=== PATIENT | male | born 1940 | race Caucasian/White ===

== ENCOUNTER → 2019-05-08 14:24 | Outpatient (POV) | payer MEDICARE, MEDICAID, SELFPAY | DX: Z00.00 Encounter for general adult medical examination without abnormal findings (principal) ==

== ENCOUNTER → 2019-08-28 14:47 | Outpatient (POV) | payer MEDICARE, MEDICAID, SELFPAY | DX: Z00.00 Encounter for general adult medical examination without abnormal findings (principal) ==

== ENCOUNTER → 2019-10-16 13:23 | Outpatient (POV) | payer MEDICARE, MEDICAID, SELFPAY | DX: Z00.00 Encounter for general adult medical examination without abnormal findings (principal) ==

== ENCOUNTER → 2020-04-22 12:52 | Outpatient (POV) | payer MEDICARE, MEDICAID, SELFPAY | PROVIDERS: PCP Internal Medicine | DX: Z00.00 Encounter for general adult medical examination without abnormal findings (principal) ==

== ENCOUNTER 2020-09-07 15:04 | Inpatient (IN) | payer MEDICARE, MEDICAID, SELFPAY ==
[2020-09-07 15:05] VITALS: BP 152/69; PULSE 106; RESP 18; TEMP 36.7; O2SAT 96; BMI 26.6
--- NOTE | 2020-09-07 15:14 | XR_ITS ---
PROCEDURE: XR CHEST PORTABLE CLINICAL HISTORY: near syncope, weakness, GI bleed, shortness of breath COMPARISON: CT CT ABDOMEN PELVIS W CON from 09/07/2020 FINDINGS: The cardiomediastinal silhouette and pulmonary vascularity are within normal limits. Hiatal hernia noted. Lungs are clear bilaterally. No acute bony finding. No acute bony abnormalities. IMPRESSION: Hiatal hernia otherwise negative Dictated by: Karsten Alegria MD 09/07/2020 18:04 Karsten Alegria MD in [place] 09/07/2020 18:04
--- NOTE | 2020-09-07 15:16 | HMH.EDGENADL ---
ED Disposition Clinical Impression: Upper GI bleed, Renal insufficiency Leukocytosis Qualifiers: Leukocytosis type: unspecified Qualified Code(s): D72.829 - Elevated white blood cell count, unspecified Disposition: Admitted As Inpatient Condition on Discharge: Fair Referrals: Provider,Referral, [Referring] - - Critical Care Critical Care Time: No Attestation: On , the high probability of a clinically significant, sudden or life threatening deterioration of the following system(s) required my full and direct attention, intervention and personal management. The time I documented below is in addition to time spent performing reported procedures but includes the following listed in this critical care notation. Medical Decision Making - Medical Records Medical records reviewed: Yes: I reviewed the patient's medical records. - [place] Inquiry Pt receiving controlled substance: No Vital Signs: 09/07/20 15:05 09/07/20 16:29 09/07/20 16:55 Temperature 98.1 F Temperature Source Oral Pulse Rate [Left Radial] 106 H 81 110 H Respiratory Rate 18 18 Blood Pressure [Right Arm] 152/69 H 119/73 119/73 Blood Pressure Mean [Right Arm] 96 88 88 Blood Pressure Source [Right Arm] Automatic Cuff Automatic Cuff Automatic Cuff Blood Pressure Position [Right Arm] Sitting Sitting Sitting 02 Sat by Pulse Oximetry 96 99 80 L Oxygen Delivery Method Room Air Nasal Cannula Room Air Oxygen Flow Rate (LPM) 2 09/07/20 18:03 Temperature Temperature Source Pulse Rate [Left Radial] 102 H Respiratory Rate Blood Pressure [Right Arm] 125/82 Blood Pressure Mean [Right Arm] 96 Blood Pressure Source [Right Arm] Automatic Cuff Blood Pressure Position [Right Arm] Sitting 02 Sat by Pulse Oximetry 95 Oxygen Delivery Method Nasal Cannula Oxygen Flow Rate (LPM) 2 - Lab Data Lab Results 09/07/20 15:19: WBC 26.0 H*, RBC 2.54 L, Hgb 8.0 L, Hct 23.7 L*, MCV 93.4, MCH 31.4 H, MCHC 33.6, RDW 14.1, Plt Count 343, MPV 13.4 H, Neut % (Auto) 77.6, Lymph % (Auto) 15.6, Potter % (Auto) 6.4, Eos % (Auto) 0.1, Baso % (Auto) 0.3, Neut # (Auto) 20.2 H, Lymph # (Auto) 4.1, Potter # (Auto) 1.7 H, Eos # (Auto) 0.0, Baso # (Auto) 0.1, Total Counted 100, Neutrophils % (Manual) 81 H, Lymphocytes % (Manual) 13, Monocytes % (Manual) 6, Platelet Estimate Normal, RBC Morphology Normal 09/07/20 15:19: Sodium 132 L, Potassium 4.3, Chloride 103, Carbon Dioxide 17 L, Anion Gap 16.3 H, BUN 77 H, Creatinine 1.70 H, Estimated GFR 39 L, Est GFR ( Amer) 47 L, Glucose 196 H, Calcium 9.1, Total Bilirubin 0.4, AST 32, ALT 29, Alkaline Phosphatase 43, Troponin I < 0.01, Total Protein 5.9 L, Albumin 3.6, Globulin 2.3, Albumin/Globulin Ratio 1.6 09/07/20 15:19: Hemoglobin A1c 5.5 09/07/20 15:19: SARS-CoV-2 IgG Ab (Rapid) Negative, SARS-CoV-2 IgM Ab (Rapid) Negative 09/07/20 15:37: Stool Occult Blood Positive A Result diagrams: 09/07/20 15:19 09/07/20 15:19 Orders (Tests/Meds): ED MEDICATIONS Generic Name Dose Route Start Last Admin Trade Name Freq PRN Reason Stop Dose Admin Pantoprazole Sodium 80 mg/ 100 mls @ 10 mls/hr 09/07/20 15:45 09/07/20 16:25 Sodium Chloride IV 09/10/20 15:44 10 mls/hr .Q10H CHE Administration Discontinued Medications Generic Name Dose Route Start Last Admin Trade Name Freq PRN Reason Stop Dose Admin Lactated Ringer's 500 mls @ 999 mls/hr 09/07/20 15:15 09/07/20 15:53 Lactated Ringer's 1000 Ml Bag IV 09/07/20 15:45 999 mls/hr .Q31M CHE Administration Iopamidol 75 ml 09/07/20 17:31 09/07/20 17:32 Iopamidol-370 (76%);100ml Bottle IV 09/07/20 17:32 75 ml ONCE ONE Administration Sodium Chloride 10 ml 09/07/20 17:31 09/07/20 17:32 Sodium Chloride 0.9% 10ml Syr (Rad Only) IV 09/07/20 17:32 10 ml ONCE ONE Administration ORDERS Category Date Time Status CT abdomen pelvis w con Stat Cat Scan 09/07/20 16:17 Taken CBC [Complete Blood Count Auto Diff] Timed Lab 09/07/20 23:00 Ordered
--- NOTE | 2020-09-07 15:23 | ECG_ITS ---
APPROVED REPORT Exam: Resting ECG HR:98 bpm ECG Measurements Heart Rate 98 AXES LA 174 P 59 QRSd 90 QRS 46 QT 340 T 19 QTc 434 Conclusion Normal sinus rhythm Possible Inferior infarct, age undetermined Abnormal ECG Electronically signed by : Kodak Prado, 09/08/2020 07:31:13
[2020-09-07 15:31] LABS: Basophils # 0.1 K/mm3 (0-0.2); Basophils % 0.3 % (0.1-2.0); Eosinophils % 0.1 % (0.1-12.0); Lymphocytes # 4.1 K/mm3 (0.7-4.5); Lymphocytes % 15.6 % (10-50); Mean Corpuscular HGB Conc 33.6 g/dL (31.8-35.4); Mean Corpuscular Hemoglobin 31.4 pg (27.0-31.2); Mean Corpuscular Volume 93.4 fl (80-94); Mean Platelet Volume 13.4 fl (7.4-10.4); Monocytes # 1.7 K/mm3 (0.1-1.0); Monocytes % 6.4 % (1.7-9.3); Neutrophils # 20.2 K/mm3 (1.8-7.8); Neutrophils % 77.6 % (37.0-80.0); Platelet Count 343 K/mm3 (142-424); Red Blood Count 2.54 M/mm3 (4.60-6.20); Red Cell Distribution Width 14.1 % (11.5-17.5)
[2020-09-07 15:34] LABS: Hematocrit 23.7 % (42.0-52.0); MANUAL DIFFERENTIAL MANUAL DIFFERENTIAL (MANUAL DIFF)
[2020-09-07 15:42] LABS: Chloride 103 mmol/L (98-107); Potassium 4.3 mmoL/L (3.5-5.1); Sodium 132 mmol/L (136-145)
[2020-09-07 15:45] LABS: Alanine Aminotransferase 29 U/L (12-78); Albumin Level 3.6 g/dl (3.5-5.0); Albumin/Globulin Ratio 1.6 (1.1-1.8); Alkaline Phosphatase 43 U/L (38-126); Aspartate Amino Transferase 32 U/L (17-59); Bilirubin,Total 0.4 mg/dl (0.2-1.3); Calcium 9.1 mg/dl (8.4-10.2); Carbon Dioxide 17 mmol/L (22.0-30.0); Estimated Glomerular Filt Rate 39 ml/min (>60); GFR (African American) 47 ML/MIN (>60); Globulin 2.3 g/dL (1.3-3.2); Glucose 196 mg/dl (74-100); Total Protein,Serum 5.9 g/dl (6.3-8.2)
[2020-09-07 15:46] LABS: Anion Gap 16.3 mEq/L (5-15); Blood Urea Nitrogen 77 mg/dl (9-20)
[2020-09-07 15:48] LABS: Hemoglobin A1C 5.5 % (4.0-6.0)
[2020-09-07 16:00] LABS: Lymphocytes % 13 % (10-50); Monocytes % 6 % (2-9); Neutrophils % 81 % (42-76); Total Cells Counted 100
[2020-09-07 16:01] LABS: Platelet Estimate Normal; RBC Morphology Normal
[2020-09-07 16:05] LABS: Occult Blood,Stool Positive (Negative)
[2020-09-07 16:11] LABS: Troponin I < 0.01 ng/ml (0.00-0.034)
--- NOTE | 2020-09-07 16:17 | CT_ITS ---
PROCEDURE: CT ABDOMEN PELVIS W CON CLINICAL INDICATION: gi bleed Blood in stool, generalized weakness COMPARISON: No exams were available for comparison TECHNIQUE: IV Contrast: 75ML Isovue 370 Oral Contrast None Axial images obtained with sagittal and coronal reformats. All CT scans at the facility use one or more dose reduction, viz: automated exposure control, ma/kV adjustment per patient size (including targeted exams where dose is matched to indication, i.e. head), or iterative reconstruction technique. 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 Coronary artery calcifications ABDOMEN & PELVIS: Medium-sized hiatal hernia.. No focal liver lesion evident. Spleen, adrenal glands, pancreas, and kidneys have an unremarkable appearance. No intestinal obstruction or free air. No evidence of appendicitis or diverticulitis. There is diverticulosis of the sigmoid colon. Prostate is enlarged measuring 5 x 5 cm. There is central decreased attenuation within the prostate. There is a small umbilical hernia containing fat. No intestinal obstruction or free air. No acute bony findings. IMPRESSION: 1. Enlarged heterogeneous prostate 2. Diverticulosis without diverticulitis. 3. Hiatal hernia. 4. Other nonacute findings with no acute abdominal or pelvic findings as described above. Dictated by: Karsten Alegria MD 09/08/2020 07:06 Karsten Alegria MD in [place] 09/08/2020 07:06
[2020-09-07 16:29] VITALS: BP 119/73; PULSE 81; O2SAT 99
[2020-09-07 16:55] VITALS: BP 119/73; PULSE 110; RESP 18; O2SAT 80
[2020-09-07 17:38] LABS: Coronavirus 19 IgG Antibody Negative (Negative); Coronavirus 19 IgM Antibody Negative (Negative)
--- NOTE | 2020-09-07 17:39 | PC.NURSE ---
Pt returned from rad.
--- NOTE | 2020-09-07 18:02 | PC.NURSE ---
Dr Campos returned call. speaking with ER at this time.
[2020-09-07 18:03] VITALS: BP 125/82; PULSE 102; O2SAT 95
--- NOTE | 2020-09-07 18:05 | PC.NURSE ---
dr carolyn ferrer
--- NOTE | 2020-09-07 18:21 | PC.NURSE ---
Dr Fierro speaking with Dr Cantu.
--- NOTE | 2020-09-07 18:39 | PC.NURSE ---
Pt's at bedside.
--- NOTE | 2020-09-07 18:39 | PC.NURSE ---
Lab at bedside
[2020-09-07 19:18] VITALS: BP 125/82; PULSE 102; RESP 18; TEMP 36.7; O2SAT 95
[2020-09-07 19:21] LABS: Troponin I 0.06 ng/ml (0.00-0.034)
--- NOTE | 2020-09-07 19:26 | PC.NURSE ---
PT ARRIVED TO THE FLOOR VIA STRETCHER FROMJOSE EDUARDO W/STAFF AT 1926
[2020-09-07 19:27] VITALS: BP 127/58; PULSE 106; RESP 18; TEMP 36.9; O2SAT 99; BMI 27.6
--- NOTE | 2020-09-07 20:00 | PC.NURSE ---
Spoke with Harrison from pharmacy to clarify if D5 1/2NS was compatible with Protonix. He gave okay to infuse together at this time.
[2020-09-07 22:05] LABS: POC Glucose,Bedside 129 (70-110)
[2020-09-08] VITALS (31 sets, daily range): BP systolic 120–176; BP diastolic 44–88; PULSE 79–109; RESP 14–20; TEMP 36.4–37.7; O2SAT 96–100; BMI 27.3
[2020-09-08 03:58] LABS: POC Glucose,Bedside 134 (70-110)
--- NOTE | 2020-09-08 07:08 | HMH.GSCON ---
*Admission Date: 09/07/20 *Reason for consult:: Symptomatic GI blood loss *History of present illness: Patient is a 80-year-old male who had presented to the emergency department yesterday evening with a 4 to 5-day history of symptoms of melena. He was found to have anemia. He was admitted for inpatient management for presumed upper GI blood loss. Review of Systems - Review of Systems Review of systems:: pertinent systems reviewed and negative unless documented below [facility] History I have reviewed the patient's past medical history: Yes Medical History: Reports:: Hypertension Denies:: Cancer, Diabetes Mellitus Type 1, Diabetes Mellitus Type 2, MRSA *Have you ever received a pneumonia vaccine?: No *Have you received a flu vaccine this season?: No Other Surgeries: Yes: No Previous Surgery, Other Amputation: No Fractures: No - *Social History Last grade of school completed: 11th or 12th Smoking Status: Former smoker Tobacco Type: cigarettes #Yrs smoked (if former smoker): 30 Smoking End Date: 2014 Alcohol Intake: never Substance Use Type: denies use *Occupational Status:: retired Housing: house *Travel in the last 8 weeks: None Family Hx:: Cancer Meds Home Medications Medication Instructions Recorded Confirmed Type lisinopril 20 mg tablet 20 mg PO DAILY 07/29/19 09/07/20 History Allergies Allergy/AdvReac Type Severity Reaction Status Date / Time Penicillins Allergy Mild Verified 07/29/19 10:39 Exam Vital signs and Labs for Last 24 Hours: Temp Pulse Resp BP Pulse Ox 98.6 F 102 H 18 158/65 H 99 09/08/20 03:56 09/08/20 03:56 09/08/20 03:56 09/08/20 03:56 09/08/20 03:56 Laboratory Results - last 24 hr 09/07/20 15:19: WBC 26.0 H*, RBC 2.54 L, Hgb 8.0 L, Hct 23.7 L*, MCV 93.4, MCH 31.4 H, MCHC 33.6, RDW 14.1, Plt Count 343, MPV 13.4 H, Neut % (Auto) 77.6, Lymph % (Auto) 15.6, Lewis % (Auto) 6.4, Eos % (Auto) 0.1, Baso % (Auto) 0.3, Neut # (Auto) 20.2 H, Lymph # (Auto) 4.1, Lewis # (Auto) 1.7 H, Eos # (Auto) 0.0, Baso # (Auto) 0.1, Total Counted 100, Neutrophils % (Manual) 81 H, Lymphocytes % (Manual) 13, Monocytes % (Manual) 6, Platelet Estimate Normal, RBC Morphology Normal 09/07/20 15:19: Sodium 132 L, Potassium 4.3, Chloride 103, Carbon Dioxide 17 L, Anion Gap 16.3 H, BUN 77 H, Creatinine 1.70 H, Estimated GFR 39 L, Est GFR ( Amer) 47 L, Glucose 196 H, Calcium 9.1, Total Bilirubin 0.4, AST 32, ALT 29, Alkaline Phosphatase 43, Troponin I < 0.01, Total Protein 5.9 L, Albumin 3.6, Globulin 2.3, Albumin/Globulin Ratio 1.6 09/07/20 15:19: Hemoglobin A1c 5.5 09/07/20 15:19: SARS-CoV-2 IgG Ab (Rapid) Negative, SARS-CoV-2 IgM Ab (Rapid) Negative 09/07/20 15:37: Stool Occult Blood Positive A 09/07/20 18:42: Troponin I 0.06 H 09/07/20 21:04: POC Glucose 129 H 09/08/20 03:50: POC Glucose 134 H I & O for Last 24 hours: Intake & Output 09/05/20 09/06/20 09/07/20 09/08/20 11:59 11:59 11:59 11:59 Intake Total 819 / 819 Output Total 1025 / 1025 Balance -206 / -206 Weight 184 lb 4 oz Narrative: Patient is in no acute distress. Abdomen is soft and nontender. Results - Labs 09/07/20 15:19 09/07/20 15:19 Laboratory Results - last 24 hr 09/07/20 15:19: WBC 26.0 H*, RBC 2.54 L, Hgb 8.0 L, Hct 23.7 L*, MCV 93.4, MCH 31.4 H, MCHC 33.6, RDW 14.1, Plt Count 343, MPV 13.4 H, Neut % (Auto) 77.6, Lymph % (Auto) 15.6, Lewis % (Auto) 6.4, Eos % (Auto) 0.1, Baso % (Auto) 0.3, Neut # (Auto) 20.2 H, Lymph # (Auto) 4.1, Lewis # (Auto) 1.7 H, Eos # (Auto) 0.0, Baso # (Auto) 0.1, Total Counted 100, Neutrophils % (Manual) 81 H, Lymphocytes % (Manual) 13, Monocytes % (Manual) 6, Platelet Estimate Normal, RBC Morphology Normal 09/07/20 15:19: Sodium 132 L, Potassium 4.3, Chloride 103, Carbon Dioxide 17 L, Anion Gap 16.3 H, BUN 77 H, Creatinine 1.70 H, Estimated GFR 39 L, Est GFR ( Amer) 47 L, Glucose 196 H, Calcium 9.1, Total Bilirubin 0.4, AST 32, ALT 29, Alkaline Phosphatase 43, Troponin I < 0
--- NOTE | 2020-09-08 07:31 | P.CONPHA_ITS ---
[facility] Pharmacy VTE Monitoring - Patient Demographics Admission date: 09/07/20 Report Date: 09/08/20 Time: 07:31 Allergies/Adverse Reactions: Patient Allergies Penicillins Allergy (Mild, Verified 07/29/19 10:39) Height: 1.75 m Weight: 83.574 kg Patient Problems: Current Active Problems Upper GI bleed (Acute) Leukocytosis (Acute) Renal insufficiency (Acute) - VTE Risk Labs: VTE Related Lab Results Hgb 8.0 g/dL (14.1-18.0) L 09/07/20 15:19 Hct 23.7 % (42.0-52.0) L* 09/07/20 15:19 Plt Count 343 K/mm3 (142-424) 09/07/20 15:19 BUN 77 mg/dl (9-20) H 09/07/20 15:19 Creatinine 1.70 mg/dl (0.66-1.25) H 09/07/20 15:19 Was VTE Risk Assessment Performed: Yes VTE Score: 2 VTE Risk Level: Very Low Risk - Prophylaxis Types of VTE Prophylaxis: TEDS Knee High
--- NOTE | 2020-09-08 07:45 | PC.NURSE ---
PT ASSESSED AT THIS TIME. BILATERAL LUNG SOUNDS CLEAR. NO EDEMA NOTED. PT DENIES ANY PAIN AT THIS TIME. STATES GENERALIZED WEAKNESS. PT TO HAVE ENDOSCOPY PERFORMED THIS AM. A&O X4. PT HAS BEEN NPO. DENIES ANY FURTHER NEEDS WILL CONTINUE TO OBSERVE.
--- NOTE | 2020-09-08 08:00 | PC.NURSE ---
SX CONSENT GONE OVER AND SIGNED WITH PT AT THIS TIME. QUESTIONS ENCOURAGED AND ANSWERED. PT VU.
--- NOTE | 2020-09-08 08:02 | HMH.HP ---
*Admission Date: 09/07/20 *Chief complaint: melenic stools *History of present illness: Mr. Askew is a pleasant 80-year-old gentleman with history of hypertension who presented to the ER due to 3 to 4 days of progressive weakness and black stools. Per his report he had an episode of shingles approximately 2 weeks ago for which he took pain medication and steroids. After finishing the steroids he noticed abdominal pain and bloating with subsequent dark stools. States he thought they would resolve but they did not get better. Given his weakness, dizziness, fatigue, he presented to the ER for assessment. Found to be anemic on arrival with presentation consistent with upper GI versus general GI bleed. Admitted for further management. Has remained hemodynamically stable overnight. Surgery consulted for assessment for possible intervention. On assessment this morning, patient denies significant abdominal pain, nausea, vomiting. Still feels quite tired but is stable on room air. Surgery has seen him and is planning for diagnostic endoscopy. Repeat labs this morning showed hemoglobin of 7.1. Tolerating Protonix drip at this time. Denies alcohol use or current smoking. Has naproxen on his med list but he does not take it regularly. [facility] History I have reviewed the patient's past medical history: Yes Medical History: Reports:: Hypertension Denies:: Cancer, Diabetes Mellitus Type 1, Diabetes Mellitus Type 2, MRSA *Have you ever received a pneumonia vaccine?: No *Have you received a flu vaccine this season?: No Other Surgeries: Yes: No Previous Surgery, Other Amputation: No Fractures: No - *Social History Last grade of school completed: 11th or 12th Smoking Status: Former smoker Tobacco Type: cigarettes #Yrs smoked (if former smoker): 30 Smoking End Date: 2014 Alcohol Intake: never Substance Use Type: denies use *Occupational Status:: retired Housing: house *Travel in the last 8 weeks: None Family Hx:: Cancer Review of Systems - Review of Systems Review of systems:: pertinent systems reviewed and negative unless documented below (14 point review of systems performed, pertinent positives and negatives as per HPI) Meds Home Medications Medication Instructions Recorded Confirmed Type lisinopril 20 mg tablet 20 mg PO DAILY 07/29/19 09/07/20 History Allergies Allergy/AdvReac Type Severity Reaction Status Date / Time Penicillins Allergy Mild Verified 07/29/19 10:39 Exam Vital signs and Labs for Last 24 Hours: Temp Pulse Resp BP Pulse Ox 98.6 F 102 H 18 158/65 H 99 09/08/20 03:56 09/08/20 03:56 09/08/20 03:56 09/08/20 03:56 09/08/20 03:56 Laboratory Results - last 24 hr 09/07/20 15:19: WBC 26.0 H*, RBC 2.54 L, Hgb 8.0 L, Hct 23.7 L*, MCV 93.4, MCH 31.4 H, MCHC 33.6, RDW 14.1, Plt Count 343, MPV 13.4 H, Neut % (Auto) 77.6, Lymph % (Auto) 15.6, Burnet % (Auto) 6.4, Eos % (Auto) 0.1, Baso % (Auto) 0.3, Neut # (Auto) 20.2 H, Lymph # (Auto) 4.1, Burnet # (Auto) 1.7 H, Eos # (Auto) 0.0, Baso # (Auto) 0.1, Total Counted 100, Neutrophils % (Manual) 81 H, Lymphocytes % (Manual) 13, Monocytes % (Manual) 6, Platelet Estimate Normal, RBC Morphology Normal 09/07/20 15:19: Sodium 132 L, Potassium 4.3, Chloride 103, Carbon Dioxide 17 L, Anion Gap 16.3 H, BUN 77 H, Creatinine 1.70 H, Estimated GFR 39 L, Est GFR ( Amer) 47 L, Glucose 196 H, Calcium 9.1, Total Bilirubin 0.4, AST 32, ALT 29, Alkaline Phosphatase 43, Troponin I < 0.01, Total Protein 5.9 L, Albumin 3.6, Globulin 2.3, Albumin/Globulin Ratio 1.6 09/07/20 15:19: Hemoglobin A1c 5.5 09/07/20 15:19: SARS-CoV-2 IgG Ab (Rapid) Negative, SARS-CoV-2 IgM Ab (Rapid) Negative 09/07/20 15:37: Stool Occult Blood Positive A 09/07/20 18:42: Troponin I 0.06 H 09/07/20 21:04: POC Glucose 129 H 09/08/20 03:50: POC Glucose 134 H I & O for Last 24 hours: Intake & Output 11/2809/06/20 09/07/20 09/08/20 23:59 23:59 23:59 23:59 Intake Total 120 / 120 699 / 699 Outpu
--- NOTE | 2020-09-08 08:11 | PC.NURSE ---
Pt is alert and oriented x4. Pt rested well with eyes closed this shift with no complaints. Bilateral lungs noted clear t/o upon auscultation. Pt tolerated RA well with no c/o SOA. RR noted even and unlabored. Remains NPO since 0000. No Bm noted this shift. Adequate urine output noted per urinal. Refused teds. VSS. No visible s/s of bleeding. Remains safe. Call light within reach. Will continue to monitor.
[2020-09-08 08:17] LABS: Basophils % 0.2 % (0.1-2.0); Eosinophils % 0.1 % (0.1-12.0); Lymphocytes # 2.7 K/mm3 (0.7-4.5); Lymphocytes % 11.9 % (10-50); Mean Corpuscular HGB Conc 35.1 g/dL (31.8-35.4); Mean Corpuscular Hemoglobin 31.5 pg (27.0-31.2); Mean Corpuscular Volume 89.7 fl (80-94); Mean Platelet Volume 8.8 fl (7.4-10.4); Monocytes # 1.2 K/mm3 (0.1-1.0); Monocytes % 5.3 % (1.7-9.3); Neutrophils # 18.7 K/mm3 (1.8-7.8); Neutrophils % 82.6 % (37.0-80.0); Platelet Count 307 K/mm3 (142-424); Red Blood Count 2.24 M/mm3 (4.60-6.20); Red Cell Distribution Width 14.3 % (11.5-17.5); White Blood Count 22.7 K/mm3 (4.8-10.8)
[2020-09-08 08:18] LABS: Chloride 106 mmol/L (98-107); Potassium 4.8 mmoL/L (3.5-5.1); Sodium 135 mmol/L (136-145)
[2020-09-08 08:21] LABS: Anion Gap 11.8 mEq/L (5-15); Blood Urea Nitrogen 58 mg/dl (9-20); Calcium 8.9 mg/dl (8.4-10.2); Carbon Dioxide 22 mmol/L (22.0-30.0); Creatinine Clearance Estimated 51 mL/min (50-200); Estimated Glomerular Filt Rate 49 ml/min (>60); GFR (African American) 59 ML/MIN (>60); Glucose 122 mg/dl (74-100)
--- NOTE | 2020-09-08 08:28 | PC.NURSE ---
REPORT GIVEN TO [facility] NURSE AT THIS TIME.
--- NOTE | 2020-09-08 08:28 | PC.NURSE ---
PT TAKEN TO [facility] AT THIS TIME VIA WHEELCHAIR
[2020-09-08 08:29] LABS: Hemoglobin 7.1 g/dL (14.1-18.0)
--- NOTE | 2020-09-08 08:29 | PC.NURSE ---
LAB CALLED STATES H&H 7.1, 20.1.
[2020-09-08 08:30] LABS: Hematocrit 20.1 % (42.0-52.0); MANUAL DIFFERENTIAL MANUAL DIFFERENTIAL (MANUAL DIFF)
--- NOTE | 2020-09-08 08:32 | PC.NURSE ---
[facility] NOTIFIED OF H&H AT THIS TIME. STATES THEY WILL RELAY MESSAGE TO DR. EDWARDS.
[2020-09-08 09:10] LABS: Anisocytosis 1+; Hypochromasia 1+; Lymphocytes % 18 % (10-50); Monocytes % 4 % (2-9); Neutrophils % 78 % (42-76); Platelet Estimate Normal; Total Cells Counted 100
--- NOTE | 2020-09-08 09:14 | P.PCN_ITS ---
- Procedure: Date: 09/08/20 Patient Date of :: 1940 Procedure Performed:: Esophagogastroduodenoscopy with epinephrine injection and Hemoclip deployment Indications:: Patient is a 80-year-old male. He presented to the emergency department with several days of melena and progressive weakness. He was found to be anemic and had findings consistent with upper GI blood loss. He was admitted and started on Protonix drip. Surgical consultation was obtained. Plan was for upper endoscopy. Performing Provider:: Ventura Campos MD Referring Provider:: John Newman MD Sedation:: MAC sedation Procedure:: Patient was taken to endoscopy procedure room. He was positioned in lateral decubitus position. Adequate intravenous sedation was achieved. Olympus endoscope was inserted via the oropharynx advanced to the esophagus. Esophagus appeared normal. Gastroesophageal junction was encountered at approximately 30 cm from the incisors. There was a large hiatal hernia. Stomach was cannulated and insufflated. Retroflexion revealed a large sliding hiatal hernia. Pylorus was traversed. Within the duodenal bulb there was a moderate ulcer with some blood with an adjacent smaller ulcer. Irrigation was performed irrigating free the blood. There was no evidence of any active bleeding. There was pigmented red spot in the ulcer. Epinephrine was injected around the periphery of both ulcers for a total of 7 cc or 0.7 mg epinephrine. There was good blanching of the mucosa. Hemoclip was then deployed at the edge of the larger ulcer contain ing pigmented spot. Additional thorough irrigation was performed. There is no evidence of any active bleeding. Endoscope was withdrawn as the stomach was desufflated. Findings:: Large sliding hiatal hernia Duodenal bulb ulcer x2, moderate ulcer contained blood and pigmented spot. Epinephrine injected and Hemoclip deployed. No active bleeding Recommendations:: Continue Protonix. Transfuse. Would continue inpatient observation until hemoglobin remains stable at least 48 hours post transfusion. Complications:: None immediately apparent Estimated blood obtained (mL): 3
--- NOTE | 2020-09-08 09:19 | HMH.ANESCL ---
[facility] Anesthesia Checklist - Patient Identification Patient Identification: Arm Band - Structural Data Admitted From: Inpatient Planned Operative Procedure/s: egd Consent for Planned Operative Procedure(s) Verified: Yes Verified Documents: Surgical Consent, History and Physical - NPO Status Verified Time NPO: 00:00 - Additional verifications Anesthesia Reactions: No - Airway Assessment C-Spine Mobility Assessed: Yes (mp2) TMJ Mobility Assessed: Yes Dentition: Edentulous - Neurological Assessment Level of Consciousness: Awake, Alert - Anesthesia Plan Anesthesia Risk discussed: Yes Anesthesia Plan: Verified ASA Class: III Anesthesia Type: MAC [facility] History I have reviewed the patient's past medical history: Yes Medical History: Reports:: Hypertension, Renal Insufficiency Denies:: Cancer, Diabetes Mellitus Type 1, Diabetes Mellitus Type 2, MRSA *Have you ever received a pneumonia vaccine?: No *Have you received a flu vaccine this season?: No Anesthesia experience/problems:: nac Other Surgeries: Yes: Other Amputation: No Fractures: No - *Social History Last grade of school completed: 11th or 12th Smoking Status: Former smoker Tobacco Type: cigarettes #Yrs smoked (if former smoker): 30 Smoking End Date: 2014 Alcohol Intake: never Substance Use Type: denies use *Occupational Status:: retired Housing: house *Travel in the last 8 weeks: None Family Hx:: Cancer
--- NOTE | 2020-09-08 09:35 | XR_ITS ---
PROCEDURE: XR ACUTE ABDOMEN SERIES CLINICAL INDICATION: abd pain- post EGD COMPARISON: CT CT ABDOMEN PELVIS W CON from 09/07/2020 FINDINGS: Upright and supine views of the abdomen show no evidence free air. The bowel gas pattern is nonspecific. No acute bony anomalies or abnormal calcifications are evident. Frontal view of the chest shows no acute finding. There is a small hiatal hernia. There is a tubular density overlying the right aspect of the abdomen. There is some increased density within the urinary bladder likely from contrast injection from recent CT scan. Metallic density is noted in the right upper quadrant possibly due to placed clip from the recent EGD. Please correlate with surgical procedure. IMPRESSION: No free air apparent. See above for detail Dictated by: Karsten Alegria MD 09/08/2020 10:29 Karsten Alegria MD in [place] 09/08/2020 10:29
--- NOTE | 2020-09-08 09:47 | SUR.PHASEII ---
09-Pt c/o severe abd pain, rolling in bed. Dr Campos contacted and at bedside. 931- acute abd series x-ry ordered per MD- pt to stay NPO until results. 45-Red at bedside- acute abd series done.
--- NOTE | 2020-09-08 10:19 | SUR.PHASEII ---
1015- Pt resting on stretcher- states pain much better #1 (1-10) scale
--- NOTE | 2020-09-08 10:53 | PC.NURSE ---
REPORT RECEIVED FROM Lalo DIAZ RN.
[2020-09-08 16:03] LABS: POC Glucose,Bedside 112 (70-110)
--- NOTE | 2020-09-08 18:21 | PC.NURSE ---
PT IS A & O X4. PT DENIES ANY PAIN. PT HAD AN EDG TODAY. PT HAS NOT HAD A BM SINCE SCOPE. PT HAS RECEIVED 1 UNIT OF BLOOD AT THIS TIME. PT FEVER NOTED OF 99.8 PRN TYLENOL GIVEN AT THIS TIME. WILL CONTINUE TO OBSERVE. DR. RUIZ STATES PLAN IS TO DC PT MONDAY.
[2020-09-09] VITALS (8 sets, daily range): BP systolic 106–142; BP diastolic 34–89; PULSE 71–116; RESP 16–24; TEMP 36.8–37.2; O2SAT 95–98; BMI 27.1
[2020-09-09 00:56] LABS: Hematocrit 25.7 % (42.0-52.0)
[2020-09-09 01:05] LABS: Hemoglobin 9.1 g/dL (14.1-18.0)
[2020-09-09 03:11] LABS: POC Glucose,Bedside 117 (70-110)
--- NOTE | 2020-09-09 04:55 | PC.NURSE ---
Pt A&OX4. lungs CTA pt denies SOA or pain. one unit of PRBC transfused this shift. pt tolerated well. pt ambulates independently to BR. pt has rested quietly
--- NOTE | 2020-09-09 07:07 | HMH.GSPN ---
Subjective Narrative: Patient had mid-abdominal pain after EGD. Now resolved. Transfused 2 units PRBCs with appropriate response. Progress Note: A&P (1) Acute kidney injury Status: Acute (2) Acute anemia Status: Acute (3) Hypertension Status: Chronic (4) Leukocytosis Status: Acute (5) Upper GI bleed Status: Acute Assessment and Plan for All Diagnoses:: Will advance diet. Exam Vital signs and Labs for Last 24 Hours: Temp Pulse Resp BP Pulse Ox 98.9 F 86 21 139/68 97 09/09/20 04:00 09/09/20 04:00 09/09/20 04:00 09/09/20 04:00 09/09/20 04:00 Laboratory Results - last 24 hr 09/08/20 07:54: WBC 22.7 H*, RBC 2.24 L, Hgb 7.1 L*, Hct 20.1 L*, MCV 89.7, MCH 31.5 H, MCHC 35.1, RDW 14.3, Plt Count 307, MPV 8.8, Neut % (Auto) 82.6 H, Lymph % (Auto) 11.9, [place] % (Auto) 5.3, Eos % (Auto) 0.1, Baso % (Auto) 0.2, Neut # (Auto) 18.7 H, Lymph # (Auto) 2.7, [place] # (Auto) 1.2 H, Eos # (Auto) 0.0, Baso # (Auto) 0.0, Total Counted 100, Neutrophils % (Manual) 78 H, Lymphocytes % (Manual) 18, Monocytes % (Manual) 4, Platelet Estimate Normal, Hypochromasia 1+, Anisocytosis 1+ 09/08/20 07:54: Sodium 135 L, Potassium 4.8, Chloride 106, Carbon Dioxide 22 D, Anion Gap 11.8, BUN 58 H, Creatinine 1.40 H, Estimated Creat Clear 51, Estimated GFR 49 L, Est GFR ( Amer) 59 D, Glucose 122 H D, Calcium 8.9 09/08/20 11:45: Blood Type O Positive, Antibody Screen Negative, Crossmatch (AHG) See Detail 09/08/20 12:55: Blood Type Confirm O Positive 09/08/20 15:51: POC Glucose 112 H 09/09/20 00:45: Hgb 9.1 L D, Hct 25.7 L 09/09/20 03:03: POC Glucose 117 H I & O for Last 24 hours: Intake & Output 09/06/20 09/07/20 09/08/20 09/09/20 11:59 11:59 11:59 11:59 Intake Total 819 / 819 2001 Output Total 1025 / 1025 350 / 350 Balance -206 / -206 1652 / 1652 Weight 184 lb 4 oz 183 lb 2 oz - *Routine Abdominal Exam Present: soft. Absent: tenderness
[2020-09-09 07:46] LABS: Basophils # 0.1 K/mm3 (0-0.2); Basophils % 0.3 % (0.1-2.0); Eosinophils % 0.3 % (0.1-12.0); Hematocrit 27.1 % (42.0-52.0); Hemoglobin 9.5 g/dL (14.1-18.0); Lymphocytes # 3.2 K/mm3 (0.7-4.5); Lymphocytes % 19.2 % (10-50); Mean Corpuscular HGB Conc 34.9 g/dL (31.8-35.4); Mean Corpuscular Hemoglobin 31.6 pg (27.0-31.2); Mean Corpuscular Volume 90.6 fl (80-94); Mean Platelet Volume 7.9 fl (7.4-10.4); Monocytes # 1.1 K/mm3 (0.1-1.0); Monocytes % 6.4 % (1.7-9.3); Neutrophils # 12.1 K/mm3 (1.8-7.8); Neutrophils % 73.9 % (37.0-80.0); Platelet Count 252 K/mm3 (142-424); Red Cell Distribution Width 14.8 % (11.5-17.5); White Blood Count 16.4 K/mm3 (4.8-10.8)
[2020-09-09 08:05] LABS: Chloride 105 mmol/L (98-107)
[2020-09-09 08:06] LABS: Potassium 4.4 mmoL/L (3.5-5.1); Sodium 134 mmol/L (136-145)
[2020-09-09 08:07] LABS: MANUAL DIFFERENTIAL MANUAL DIFFERENTIAL (MANUAL DIFF)
[2020-09-09 08:08] LABS: Alanine Aminotransferase 23 U/L (12-78); Alkaline Phosphatase 49 U/L (38-126); Anion Gap 9.4 mEq/L (5-15); Aspartate Amino Transferase 45 U/L (17-59); Blood Urea Nitrogen 31 mg/dl (9-20); Carbon Dioxide 24 mmol/L (22.0-30.0); Creatinine Clearance Estimated 54 mL/min (50-200); Estimated Glomerular Filt Rate 53 ml/min (>60); GFR (African American) 64 ML/MIN (>60)
[2020-09-09 08:09] LABS: Albumin Level 3.6 g/dl (3.5-5.0); Albumin/Globulin Ratio 1.4 (1.1-1.8); Calcium 8.8 mg/dl (8.4-10.2); Globulin 2.6 g/dL (1.3-3.2); Glucose 113 mg/dl (74-100); Magnesium 2.4 mg/dl (1.6-2.3); Total Protein,Serum 6.2 g/dl (6.3-8.2)
--- NOTE | 2020-09-09 08:10 | HMH.ACPN2 ---
Internal Medicine - PN: Subj *Date: 09/09/20 *Time: 08:10 Interval history: Patient is alert, pleasant, talkative, oriented x3. Tolerating clear liquids without problems. Has not had stools since EGD procedure done. No vomiting. Exam Vital signs and Labs for Last 24 Hours: Temp Pulse Resp BP Pulse Ox 98.9 F 86 21 139/68 97 09/09/20 04:00 09/09/20 04:00 09/09/20 04:00 09/09/20 04:00 09/09/20 04:00 Laboratory Results - last 24 hr 09/08/20 07:54: WBC 22.7 H*, RBC 2.24 L, Hgb 7.1 L*, Hct 20.1 L*, MCV 89.7, MCH 31.5 H, MCHC 35.1, RDW 14.3, Plt Count 307, MPV 8.8, Neut % (Auto) 82.6 H, Lymph % (Auto) 11.9, [place] % (Auto) 5.3, Eos % (Auto) 0.1, Baso % (Auto) 0.2, Neut # (Auto) 18.7 H, Lymph # (Auto) 2.7, [place] # (Auto) 1.2 H, Eos # (Auto) 0.0, Baso # (Auto) 0.0, Total Counted 100, Neutrophils % (Manual) 78 H, Lymphocytes % (Manual) 18, Monocytes % (Manual) 4, Platelet Estimate Normal, Hypochromasia 1+, Anisocytosis 1+ 09/08/20 07:54: Sodium 135 L, Potassium 4.8, Chloride 106, Carbon Dioxide 22 D, Anion Gap 11.8, BUN 58 H, Creatinine 1.40 H, Estimated Creat Clear 51, Estimated GFR 49 L, Est GFR ( Amer) 59 D, Glucose 122 H D, Calcium 8.9 09/08/20 11:45: Blood Type O Positive, Antibody Screen Negative, Crossmatch (AHG) See Detail 09/08/20 12:55: Blood Type Confirm O Positive 09/08/20 15:51: POC Glucose 112 H 09/09/20 00:45: Hgb 9.1 L D, Hct 25.7 L 09/09/20 03:03: POC Glucose 117 H 09/09/20 07:31: WBC 16.4 H D, RBC 3.00 L D, Hgb 9.5 L, Hct 27.1 L, MCV 90.6, MCH 31.6 H, MCHC 34.9, RDW 14.8, Plt Count 252, MPV 7.9, Neut % (Auto) 73.9, Lymph % (Auto) 19.2, [place] % (Auto) 6.4, Eos % (Auto) 0.3, Baso % (Auto) 0.3, Neut # (Auto) 12.1 H, Lymph # (Auto) 3.2, [place] # (Auto) 1.1 H, Eos # (Auto) 0.0, Baso # (Auto) 0.1 09/09/20 07:31: Sodium 134 L, Potassium 4.4, Chloride 105 I & O for Last 24 hours: Intake & Output 09/06/20 09/07/20 09/08/20 09/09/20 11:59 11:59 11:59 11:59 Intake Total 819 / 819 2001 Output Total 1025 / 1025 350 / 350 Balance -206 / -206 1652 / 1652 Weight 184 lb 4 oz 183 lb 2 oz - Constitutional no acute distress - *Routine HEENT Exam Head: Present: normocephalic Eye: Present: EOMI, PERRL ENT: Present: mucous membranes moist - *Routine Neck Exam Present: supple. Absent: lymphadenopathy - *Routine Respiratory Exam Present: CTA bilaterally - *Routine Cardiovascular Exam Present: RRR - *Routine Abdominal Exam Present: soft, normoactive bowel sounds. Absent: tenderness - *Routine Extremities Exam Absent: cyanosis, clubbing, edema - *Routine Skin Exam Present: warm. Absent: rash - *Routine Neurological Exam Present: alert, oriented X3 Assessment and Plan (1) Acute kidney injury Status: Acute Category: Medical Code(s): N17.9 - Acute kidney failure, unspecified (2) Acute anemia Status: Acute Category: Medical Code(s): D64.9 - Anemia, unspecified (3) Hypertension Status: Chronic Qualifiers: Hypertension type: essential hypertension Qualified Code(s): I10 - Essential (primary) hypertension Category: Medical Code(s): I10 - Essential (primary) hypertension (4) Leukocytosis Status: Acute Qualifiers: Leukocytosis type: unspecified Qualified Code(s): D72.829 - Elevated white blood cell count, unspecified Category: Medical Code(s): D72.829 - Elevated white blood cell count, unspecified (5) Upper GI bleed Status: Acute Category: Medical Code(s): K92.2 - Gastrointestinal hemorrhage, unspecified - Assessment and plan all Dx Assessment and Plan for all problems:: Labs improving. Good blood count response to transfusion. Continue clear liquids and acid suppression. Watch blood counts tomorrow. Possible discharge tomorrow if stable
[2020-09-09 08:41] LABS: Anisocytosis 1+; Hypochromasia 1+; Lymphocytes % 21 % (10-50); Monocytes % 5 % (2-9); Neutrophils % 74 % (42-76); Total Cells Counted 100
[2020-09-09 08:42] LABS: Platelet Estimate Normal
[2020-09-09 12:25] LABS: POC Glucose,Bedside 121 (70-110)
--- NOTE | 2020-09-09 19:00 | PC.NURSE ---
PT IS AO*4, HE HAS BEEN UP TO CHAIR AND HAS AMBULATED TO THE RESTROOM UNDER HIS OWN POWER, HE HAS TOLERATED RA WELL T/O SHIFT WITH NO COMPLAINTS, HE TOLERATED FULL LIQUID DIET, PT VSS, NO NEEDS AT THIS TIME, WILL CONTINUE TO MONITOR.
[2020-09-09 22:04] LABS: POC Glucose,Bedside 115 (70-110)
[2020-09-09 22:04] LABS: POC Glucose,Bedside 114 (70-110)
[2020-09-10 03:01] LABS: POC Glucose,Bedside 103 (70-110)
[2020-09-10 04:00] VITALS: BP 104/49; PULSE 71; RESP 16; TEMP 36.9; O2SAT 92
[2020-09-10 04:51] VITALS: BMI 27.3
--- NOTE | 2020-09-10 06:23 | PC.NURSE ---
pt has rested well t/o shift, has not complained of N/V, SOA or chest pain, VSS, remains on room air
--- NOTE | 2020-09-10 06:59 | HMH.GSPN ---
Subjective Patient reports: no new complaints Progress Note: A&P (1) Acute kidney injury Status: Acute (2) Acute anemia Status: Acute (3) Hypertension Status: Chronic (4) Leukocytosis Status: Acute (5) Upper GI bleed Status: Acute Assessment and plan: Secondary to ulcer. No sign of definitive active bleeding. Continue PPI. Follow-up pending hemoglobin. Possible discharge home tomorrow (after 48 hours of stability) if no sign of recurrent bleeding noted. Exam Vital signs and Labs for Last 24 Hours: Temp Pulse Resp BP Pulse Ox 98.4 F 71 16 104/49 L 92 L 09/10/20 04:00 09/10/20 04:00 09/10/20 04:00 09/10/20 04:00 09/10/20 04:00 Laboratory Results - last 24 hr 09/09/20 07:31: WBC 16.4 H D, RBC 3.00 L D, Hgb 9.5 L, Hct 27.1 L, MCV 90.6, MCH 31.6 H, MCHC 34.9, RDW 14.8, Plt Count 252, MPV 7.9, Neut % (Auto) 73.9, Lymph % (Auto) 19.2, [place] % (Auto) 6.4, Eos % (Auto) 0.3, Baso % (Auto) 0.3, Neut # (Auto) 12.1 H, Lymph # (Auto) 3.2, [place] # (Auto) 1.1 H, Eos # (Auto) 0.0, Baso # (Auto) 0.1, Total Counted 100, Neutrophils % (Manual) 74, Lymphocytes % (Manual) 21, Monocytes % (Manual) 5, Platelet Estimate Normal, Hypochromasia 1+, Anisocytosis 1+ 09/09/20 07:31: Sodium 134 L, Potassium 4.4, Chloride 105, Carbon Dioxide 24, Anion Gap 9.4, BUN 31 H D, Creatinine 1.30 H, Estimated Creat Clear 54, Estimated GFR 53 L, Est GFR ( Amer) 64, Glucose 113 H, Calcium 8.8, Magnesium 2.4 H, Total Bilirubin 1.0, AST 45 D, ALT 23, Alkaline Phosphatase 49, Total Protein 6.2 L, Albumin 3.6, Globulin 2.6, Albumin/Globulin Ratio 1.4 09/09/20 12:07: POC Glucose 121 H 09/09/20 17:08: POC Glucose 115 H 09/09/20 21:51: POC Glucose 114 H 09/10/20 02:52: POC Glucose 103 I & O for Last 24 hours: Intake & Output 09/07/20 09/08/20 09/09/20 09/10/20 11:59 11:59 11:59 11:59 Intake Total 819 / 819 2452 / 2452 1140 / 1140 Output Total 1025 / 1025 350 / 350 1075 / 1075 Balance -206 / -206 2101 / 2101 65 / 65 Weight 184 lb 4 oz 183 lb 2 oz 184 lb 9 oz - Constitutional no acute distress - *Routine Respiratory Exam Absent: respiratory distress - *Routine Cardiovascular Exam Present: RRR
[2020-09-10 07:00] LABS: Basophils % 0.3 % (0.1-2.0); Eosinophils # 0.1 K/mm3 (0.0-0.4); Eosinophils % 0.7 % (0.1-12.0); Hematocrit 25.7 % (42.0-52.0); Hemoglobin 8.8 g/dL (14.1-18.0); Lymphocytes # 2.4 K/mm3 (0.7-4.5); Lymphocytes % 21.9 % (10-50); Mean Corpuscular HGB Conc 34.2 g/dL (31.8-35.4); Mean Corpuscular Hemoglobin 31.2 pg (27.0-31.2); Mean Corpuscular Volume 91.1 fl (80-94); Mean Platelet Volume 7.6 fl (7.4-10.4); Monocytes # 0.9 K/mm3 (0.1-1.0); Monocytes % 7.9 % (1.7-9.3); Neutrophils # 7.5 K/mm3 (1.8-7.8); Neutrophils % 69.2 % (37.0-80.0); Platelet Count 251 K/mm3 (142-424); Red Blood Count 2.82 M/mm3 (4.60-6.20); Red Cell Distribution Width 15.1 % (11.5-17.5); White Blood Count 10.9 K/mm3 (4.8-10.8)
[2020-09-10 07:09] LABS: Chloride 106 mmol/L (98-107)
[2020-09-10 07:10] LABS: Potassium 4.4 mmoL/L (3.5-5.1); Sodium 137 mmol/L (136-145)
[2020-09-10 07:12] LABS: Alanine Aminotransferase 23 U/L (12-78); Alkaline Phosphatase 43 U/L (38-126); Aspartate Amino Transferase 41 U/L (17-59); Bilirubin,Total 0.7 mg/dl (0.2-1.3); Blood Urea Nitrogen 19 mg/dl (9-20); Creatinine Clearance Estimated 55 mL/min (50-200); Estimated Glomerular Filt Rate 53 ml/min (>60); GFR (African American) 64 ML/MIN (>60)
[2020-09-10 07:13] LABS: Albumin Level 3.3 g/dl (3.5-5.0); Albumin/Globulin Ratio 1.4 (1.1-1.8); Anion Gap 8.4 mEq/L (5-15); Calcium 8.6 mg/dl (8.4-10.2); Carbon Dioxide 27 mmol/L (22.0-30.0); Globulin 2.3 g/dL (1.3-3.2); Glucose 108 mg/dl (74-100); Total Protein,Serum 5.6 g/dl (6.3-8.2)
--- NOTE | 2020-09-10 07:43 | HMH.DCSUM ---
General - General Admission date:: 09/07/20 Discharge date: 09/10/20 HPI HPI: Mr. Askew is a pleasant 80-year-old gentleman with history of hypertension who presented to the ER due to 3 to 4 days of progressive weakness and black stools. Per his report he had an episode of shingles approximately 2 weeks ago for which he took pain medication and steroids. After finishing the steroids he noticed abdominal pain and bloating with subsequent dark stools. States he thought they would resolve but they did not get better. Given his weakness, dizziness, fatigue, he presented to the ER for assessment. Found to be anemic on arrival with presentation consistent with upper GI versus general GI bleed. Admitted for further management. Has remained hemodynamically stable overnight. Surgery consulted for assessment for possible intervention. On assessment this morning, patient denies significant abdominal pain, nausea, vomiting. Still feels quite tired but is stable on room air. Surgery has seen him and is planning for diagnostic endoscopy. Repeat labs this morning showed hemoglobin of 7.1. Tolerating Protonix drip at this time. Denies alcohol use or current smoking. Has naproxen on his med list but he does not take it regularly. Hospital Course Hospital Course: 80-year-old male admitted for acute GI bleed, hemorrhagic anemia, melenic stools. Stabilized inpatient. Surgery was consulted, endoscopy performed with identification of gastric ulcer. Clips placed, see procedure note for full details. Was transfused 2 units packed red blood cells and monitored for 48 hours. Patient's hemoglobin had no significant decline. Vitals remained stable. BUN normalized and he had no further stools/melenic stools after procedure. Tolerated advancement in diet. We will continue PPI twice daily for the next month and then decrease to once daily. Suspect etiology was combination of NSAIDs and steroids given recent treatment for shingles and onset of symptoms thereafter. Would avoid NSAIDs for the foreseeable future could call. Defer further management to primary care. Would benefit from repeat labs within a week. Recommend close follow-up with primary care as well within the coming week. Patient denies chest pain, nausea, vomiting, shortness of breath. Medically stable for discharge home Objective Vital signs: Temp Pulse Resp BP Pulse Ox 98.4 F 71 16 104/49 L 92 L 09/10/20 04:00 09/10/20 04:00 09/10/20 04:00 09/10/20 04:00 09/10/20 04:00 Narrative: - Constitutional no acute distress - *Routine HEENT Exam Head: Present: normocephalic Eye: Present: EOMI, PERRL ENT: Present: mucous membranes moist - *Routine Neck Exam Present: supple. Absent: lymphadenopathy - *Routine Respiratory Exam Present: CTA bilaterally - *Routine Cardiovascular Exam Present: RRR - *Routine Abdominal Exam Present: soft, normoactive bowel sounds, tenderness (Minimal epigastric tenderness, otherwise benign abdomen) - *Routine Extremities Exam Absent: cyanosis, clubbing, edema - *Routine Skin Exam Present: warm. Absent: rash - *Routine Neurological Exam Present: alert, oriented X3 Results Labs on day of discharge: Labs from last 24 hours 09/10/20 09/10/20 09/10/20 06:02 06:02 02:52 WBC 10.9 H D RBC 2.82 L Hgb 8.8 L Hct 25.7 L MCV 91.1 MCH 31.2 MCHC 34.2 RDW 15.1 Plt Count 251 MPV 7.6 Neut % (Auto) 69.2 Lymph % (Auto) 21.9 [place] % (Auto) 7.9 Eos % (Auto) 0.7 Baso % (Auto) 0.3 Neut # (Auto) 7.5 Lymph # (Auto) 2.4 [place] # (Auto) 0.9 Eos # (Auto) 0.1 Baso # (Auto) 0.0 Total Counted Neutrophils % (Manual) Lymphocytes % (Manual) Monocytes % (Manual) Platelet Estimate Hypochromasia Anisocytosis Sodium 137 Potassium 4.4 Chloride 106 Carbon Dioxide 27 Anion Gap 8.4 BUN 19 D Creatinine 1.30 H Estimat
[2020-09-10 08:00] VITALS: BP 143/66; PULSE 85; RESP 19; TEMP 36.8; O2SAT 99
[2020-09-10 12:06] LABS: POC Glucose,Bedside 127 (70-110)
[2020-09-10 12:11] LABS: Hematocrit 27.5 % (42.0-52.0); Hemoglobin 9.3 g/dL (14.1-18.0)
== END 2020-09-10 13:57 | disposition home or self-care (01) | DRG 378 ==
LOC: ER 18:26 → 2ND 19:05
PROVIDERS: Internal Medicine Adolescent Medicine; Surgery; Admitting Provider Emergency Medicine; Emergency Provider Physician Assistant; PCP Internal Medicine; Visit Provider Internal Medicine Adolescent Medicine
PROC: 0DJ08ZZ Inspection of Upper Intestinal Tract, Via Natural or Artificial Opening Endoscopic (ICD-10-PCS; CPT 43235; principal; 2020-09-08 09:30)
DX: K26.0 Acute duodenal ulcer with hemorrhage (principal); N17.9 Acute kidney failure, unspecified; D64.9 Anemia, unspecified; I10 Essential (primary) hypertension
CPT/HCPCS: 43255; 36415; 71045; 74021; 74177; 80048; 80053; 82272; 82962; 83036; 83735; 84484; 85007; 85014; 85018; 85025; 86328; 86850; 93005; 96365; 96367; 99284; G0328; P9016; Q9967

== ENCOUNTER → 2021-12-10 15:22 | Outpatient (CLI) | payer MEDICARE, MEDICAID, SELFPAY ==
[2021-12-10 16:42] LABS: Strep Scrn Group A (Rapid) Negative (Negative)
== END ==
PROVIDERS: PCP Internal Medicine; Visit Provider Internal Medicine
DX: Z20.822 Contact with and (suspected) exposure to COVID-19 (principal); J02.9 Acute pharyngitis, unspecified
CPT/HCPCS: 87275; 87276; 87430; C9803; U0003; U0005

== ENCOUNTER → 2022-04-26 11:52 | Outpatient (CLI) | payer MEDICARE, MEDICAID, SELFPAY | PROVIDERS: PCP Internal Medicine; Visit Provider Internal Medicine | DX: U07.1 COVID-19 (principal) | CPT/HCPCS: C9803; U0003; U0005 ==

== ENCOUNTER 2023-02-18 08:25 | Emergency (ER) | payer MEDICARE, SELFPAY ==
[2023-02-18 08:40] VITALS: BP 154/69; PULSE 68; RESP 20; TEMP 36.6; O2SAT 100; BMI 25.7
--- NOTE | 2023-02-18 08:50 | XR_ITS ---
PROCEDURE INFORMATION: Exam: XR Right Foot Exam date and time: 02/18/2023 8:48 AM Age: 82 years old Clinical indication: Toes; Right; Patient HX: Pain in 2-4th digits of RT foot since this morning, nkt. ; Additional info: Pain in right foot denies injury TECHNIQUE: Imaging protocol: Radiologic exam of the right foot. Views: 3 or more views. AP, lateral and oblique views COMPARISON: No relevant prior studies available. FINDINGS: Bones/joints: Enthesophyte at the Achilles insertion on the calcaneus. There is a plantar enthesophyte. No acute fracture or dislocation. Degenerative changes interphalangeal joints distally. Soft tissues: Normal. IMPRESSION: No acute fracture.
[2023-02-18 08:54] VITALS: BMI 25.7
[2023-02-18 09:11] LABS: Uric Acid 7.3 mg/dl (3.5-8.5)
--- NOTE | 2023-02-18 09:33 | EXP.UTC ---
Discharge Plan Disposition Patient Disposition: Home, Self-Care Condition: Good Prescriptions Prescriptions: New colchicine [Colcrys] 0.6 mg tablet 0.6 mg PO DIRECTED Qty: 3 0RF Rx Instructions: Take 2 tablets (1.2mg) now then wait one hour and take 1 tablet (0.6mg) clindamycin HCl 300 mg capsule 300 mg PO QID 5 Days Qty: 20 0RF No Action lisinopril 20 mg tablet 20 mg PO DAILY Referrals Follow up/Referrals: Lloyd Orellana MD [Primary Care Provider] - See instructions Activity Restrictions/Add. Instructions Additional Instructions/Restrictions: Take medication as prescribed Follow up with your Family Doctor if no improvement or any worsening of symptoms Return if needed Straight to ER if any life threatening symptoms Clinical Impressions Clinical Impression: Cellulitis Qualifiers: Site of cellulitis: unspecified site Qualified Code(s): L03.90 - Cellulitis, unspecified Instructions Patient Instructions: Cellulitis, DI for Pseudogout, Clindamycin, Colchicine Discharge ED Provider: Leatha Navarro [facility] General Stated complaint: possible gout in Rt foot Mode of Arrival: Ambulatory Source of Information: Patient and Relative Limitations: No Limitations Time Seen by Provider: 02/18/23 08:50 Description of Symptoms (Recalled from Triage Doc. by RN): PATIENT C/O RIGHT FOOT PAIN THAT STARTED THIS MORNING. NO KNOWN INJURY HEENT Symptoms (Recalled from RN notes): No Resp Symptoms (Recalled from RN notes): No Skin Symptoms (Recalled from RN notes): No MS Symptoms (Recalled from RN notes): Yes Functional Status (Recalled from RN notes): WNL History of Present Illness Provider Complaint: Patient states that he started having pain in the top of his right foot that started this morning States that he was worried that he may have Gout States that he hasnt done anything to hurt his foot and denies known injury but this morning the top of his foot looked a little red and hurt when he would walk on it Related Data Home Medications Medication Instructions Recorded Confirmed lisinopril 20 mg tablet 20 mg PO DAILY Hypertension 07/29/19 02/18/23 Previous Rx's Medication Instructions Recorded clindamycin HCl 300 mg capsule 300 mg PO QID 5 days #20 caps 02/18/23 colchicine 0.6 mg tablet (Colcrys) 0.6 mg PO DIRECTED #3 tabs 02/18/23 Allergies Allergy/AdvReac Type Severity Reaction Status Date / Time Penicillins Allergy Mild Verified 07/29/19 10:39 Worker's Comp Is this a Worker's Comp case?: No [facility] Disclaimer: The information contained in this section may have been updated after the patient was seen, as this information can be updated by other users. Medical History (Updated 02/18/23 @ 09:59 by Leatha Navarro APRN) Hypertension Social History Smoking Status: Former smoker pack-years: 30 alcohol intake: never substance use type: denies use current occupational status: retired Travel in the last 8 weeks: None housing: house current occupation: [employer] caffeine: Yes ROS Obtained: Yes All systems reviewed & no additional complaints except as documented and Yes Systems reviewed as appropriate & no additional complaints except as documented ENT Ears, Nose, Mouth, and Throat: Reports system reviewed and no additional complaints, except as documented and Reports as per HPI Cardiovascular Cardiovascular: Reports system reviewed and no additional complaints, except as documented and Reports as per HPI Respiratory Respiratory: Reports system reviewed and no additional complaints, except as documented and Reports as per HPI Gastrointestinal Gastrointestingal: Reports system reviewed and no additional complaints, except as documented and as per HPI Integumentary/Breasts Skin/Breast: Reports system reviewed and no additional complaints, except as documented and Reports as per HPI Comments: Mild redness and pain in the top of foot around the base of his s
[2023-02-18 09:58] VITALS: BP 154/69; PULSE 68; RESP 20; TEMP 36.6; O2SAT 100
== END 2023-02-18 10:00 | disposition home or self-care (01) ==
PROVIDERS: Emergency Provider Nurse Practitioner; PCP Internal Medicine
DX: L03.115 Cellulitis of right lower limb (principal); I10 Essential (primary) hypertension; Z87.891 Personal history of nicotine dependence
CPT/HCPCS: 73630; 84550; 99204; 99212; G0463

== ENCOUNTER → 2023-06-21 02:00 | Outpatient (CLI) | payer MEDICARE, SELFPAY ==
[2023-06-21 19:21] LABS: Basophils # 0.1 K/mm3 (0-0.2); Basophils % 0.6 % (0.1-2.0); Eosinophils # 0.3 K/mm3 (0.0-0.4); Eosinophils % 3.8 % (0.1-12.0); Hematocrit 43.8 % (42.0-52.0); Hemoglobin 14.1 g/dL (14.1-18.0); Lymphocytes # 1.9 K/mm3 (0.7-4.5); Lymphocytes % 21.9 % (10-50); Mean Corpuscular HGB Conc 32.2 g/dL (31.8-35.4); Mean Corpuscular Hemoglobin 29.5 pg (27.0-31.2); Mean Corpuscular Volume 91.8 fl (80-94); Mean Platelet Volume 9.3 fl (7.4-10.4); Monocytes # 0.9 K/mm3 (0.1-1.0); Neutrophils # 5.4 K/mm3 (1.8-7.8); Neutrophils % 62.7 % (37.0-80.0); Platelet Count 311 K/mm3 (142-424); Red Blood Count 4.78 M/mm3 (4.60-6.20); Red Cell Distribution Width 13.2 % (11.5-17.5); White Blood Count 8.6 K/mm3 (4.8-10.8)
[2023-06-21 19:30] LABS: Alanine Aminotransferase 18 U/L (12-78); Albumin Level 4.4 g/dl (3.5-5.0); Albumin/Globulin Ratio 1.4 (1.1-1.8); Alkaline Phosphatase 108 U/L (38-126); Anion Gap 19.4 mEq/L (5-15); Aspartate Amino Transferase 25 U/L (17-59); Bilirubin,Total 0.5 mg/dl (0.2-1.3); Blood Urea Nitrogen 23 mg/dl (9-20); Calcium 9.1 mg/dl (8.4-10.2); Carbon Dioxide 23 mmol/L (22.0-30.0); Chloride 105 mmol/L (98-107); Chol/HDL Ratio 7.6 (1-3.5); Cholesterol 198 mg/dl (140-200); Estimated Glomerular Filt Rate 49 ml/min (>60); GFR (African American) 59 ML/MIN (>60); Globulin 3.1 g/dL (1.3-3.2); Glucose 74 mg/dl (74-100); HDL Cholesterol 26 mg/dl (40-60); Potassium 5.4 mmoL/L (3.5-5.1); Sodium 142 mmol/L (136-145); Total Protein,Serum 7.5 g/dl (6.3-8.2); Triglycerides 212 mg/dl (30-150); VLDL Cholesterol 42 mg/dL (0-40)
[2023-06-21 19:48] LABS: 25-OH Vitamin D, Total 35.5 ng/mL (30-100); Free T4 (Free Thyroxine) 1.24 ng/dl (0.78-2.19)
[2023-06-21 20:02] LABS: Prostate Specific Ag Screen 86.5 ng/ml (0.0-4.0); Thyroid Stimulating Hormone 4.11 uIU/mL (0.465-4.68)
[2023-06-21 21:33] LABS: Direct LDL Cholesterol 122.97 mg/dL (100-129)
== END ==
PROVIDERS: PCP Emergency Medicine; Visit Provider Emergency Medicine
DX: I10 Essential (primary) hypertension (principal); Z12.5 Encounter for screening for malignant neoplasm of prostate; E55.9 Vitamin D deficiency, unspecified
CPT/HCPCS: 80053; 80061; 82306; 84439; 84443; 85025; G0103

== ENCOUNTER 2024-06-04 15:58 | Outpatient (CLI) | payer MEDICARE, MEDICAID, SELFPAY ==
--- NOTE | 2024-06-04 16:04 | XR_ITS ---
PROCEDURE INFORMATION: Exam: XR Left Foot Exam date and time: 06/04/2024 4:06 PM Age: 84 years old Clinical indication: Patient HX: Top of left foot pain; Additional info: Left ankle and foot pain, dropped metal object on TECHNIQUE: Imaging protocol: Radiologic exam of the left foot. Views: 3 or more views. COMPARISON: CR XR ANKLE LT 2V 06/04/2024 4:06 PM FINDINGS: Bones/joints: No acute fracture identified. Moderate-sized heel spurs. Soft tissues: Normal. IMPRESSION: No acute abnormality.
--- NOTE | 2024-06-04 16:04 | XR_ITS ---
PROCEDURE INFORMATION: Exam: XR Left Ankle Exam date and time: 06/04/2024 4:06 PM Age: 84 years old Clinical indication: Patient HX: Left ankle pain; Additional info: Dropped a metal object on left ankle and foot TECHNIQUE: Imaging protocol: Radiologic exam of the left ankle. Views: 1 or 2 views. COMPARISON: CR XR FOOT LT MIN 3V 06/04/2024 4:06 PM FINDINGS: Bones/joints: No acute fracture identified. No other significant bone or joint abnormality. Heel spurs. Soft tissues: Normal. IMPRESSION: No acute abnormality.
== END 2024-06-04 23:59 | disposition home or self-care (01) ==
LOC: RAD 16:00
PROVIDERS: PCP Internal Medicine; Visit Provider Internal Medicine
DX: M25.572 Pain in left ankle and joints of left foot (principal); M79.672 Pain in left foot
CPT/HCPCS: 73600; 73630

== ENCOUNTER 2024-06-15 08:32 | Emergency (ER) | payer MEDICARE, MEDICAID, SELFPAY ==
[2024-06-15 08:40] VITALS: BP 158/74; PULSE 97; RESP 19; TEMP 36.6; O2SAT 98; BMI 25.7
--- NOTE | 2024-06-15 09:21 | ED_ITS ---
Discharge Plan Disposition Patient Disposition: Home, Self-Care Condition: Good Prescriptions Prescriptions: New cephalexin 500 mg tablet 500 mg PO BID 10 Days Qty: 20 0RF No Action lisinopril 20 mg tablet 20 mg PO DAILY Qty: 90 1RF Referrals Follow up/Referrals: Lloyd Orellana MD [Primary Care Provider] - See instructions Activity Restrictions/Add. Instructions Additional Instructions/Restrictions: follow up with pcp antibiotics as ordered boot during the day- elevated-ice- rest follow up with podiatry Clinical Impressions Clinical Impression: Cerumen impaction, Otitis media, Acute foot pain Instructions Patient Instructions: Cerumen Impaction, Middle Ear Infection, DI for Foot Pain Print Language Print Language: Azerbaijani Discharge ED Provider: Nikolas ([facility])[place] [facility] [place] General Stated complaint: dizzy,weakness, left foot inj Mode of Arrival: Ambulatory Source of Information: Patient Limitations: No Limitations Time Seen by Provider: 06/15/24 09:21 Description of Symptoms (Recalled from Triage Doc. by RN): PATIENT C/O WEAKNESS AND DIZZINESS. PATIENT ALSO REPORTS LEFT FOOT PAIN AFTER INJURING IT 10 DAYS AGO. HE STATES HE GOT AN X-RAY WHEN IT HAPPENED BUT IT IS STILL HURTING HEENT Symptoms (Recalled from RN notes): No Resp Symptoms (Recalled from RN notes): No Skin Symptoms (Recalled from RN notes): No MS Symptoms (Recalled from RN notes): Yes Functional Status (Recalled from RN notes): WNL History of Present Illness Provider Complaint: 84 yr old male presents for c/o dizzy,weakness, left foot inj- pt states he dropped a peice of steel on it 10 days ago and had xray- but its not getting better Related Data Previous Rx's ?Medication ?Instructions ?Recorded lisinopril 20 mg tablet 20 mg PO DAILY Hypertension #90 04/22/24 tabs cephalexin 500 mg tablet 500 mg PO BID 10 days #20 tabs 06/15/24 Allergies Allergy/AdvReac Type Severity Reaction Status Date / Time Penicillins Allergy Mild Verified 06/04/24 15:32 Worker's Comp Is this a Worker's Comp case?: No [facility] Disclaimer: The information contained in this section may have been updated after the patient was seen, as this information can be updated by other users. Medical History , RX SPECIALIST) Elevated prostate specific antigen (PSA) Neuropathy Duodenal ulcer Postherpetic neuralgia Hereditary and idiopathic neuropathy, unspecified Hypertension Social History , RX SPECIALIST) Smoking Status: Former smoker tobacco type: cigarettes alcohol intake: never substance use type: denies use current occupational status: retired Travel in the last 8 weeks: None housing: house current occupation: [employer] caffeine: Yes ROS Obtained: Yes All systems reviewed & no additional complaints except as documented Constitutional Constitutional: Reports system reviewed and no additional complaints, except as documented and Reports as per HPI Eyes Eyes: Reports system reviewed and no additional complaints, except as documented and Reports as per HPI ENT Ears, Nose, Mouth, and Throat: Reports system reviewed and no additional complaints, except as documented, Reports as per HPI, Reports dizziness and Reports otalgia Cardiovascular Cardiovascular: Reports system reviewed and no additional complaints, except as documented Respiratory Respiratory: Reports system reviewed and no additional complaints, except as documented Musculoskeletal Musculoskeletal: Reports system reviewed and no additional complaints, except as documented, Reports as per HPI, Reports arthralgias and Reports limited range of motion Integumentary/Breasts Skin/Breast: Reports system reviewed and no additional complaints, except as documented Neurologic Neurologic: Reports system reviewed and no additional complaints, except as documented and Reports dizziness Endocrine Endocrine: Reports system reviewed and no additional complaints, except as documented Hematologic/Lymphatic Henatologic/Lymphatic: Reports system reviewed and no additional complaints, except as documented Allergic/Immunologic Allergic/Immunologic: Reports system reviewed and no additional complaints, except as documented Physical Exam General General appearance: alert and in no apparent distress Eye Eye exam: Present normal appearance and PERRL ENT ENT exam: Present mucous membranes moist Expanded ENT Exam TM/Canal exam: Left TM: cerumen impaction and Right TM: erythema, bulging and loss of landmarks Respiratory Respiratory exam: Present normal lung sounds bilaterally Cardiovascular Cardiovascular exam: Present regular rate and normal rhythm Expanded Lower Extremity Exam Left: Top foot image: 2 1. redness Neurological Exam Neurological exam: Present alert, oriented X3 and CN II-XII intact Skin Skin exam: Present warm and intact Medical Decision Making Medical Records Medical records reviewed: Yes I reviewed the patient's medical records. [place] Inquiry Pt receiving controlled substance: No [place] was queried for this patient: No Vital Signs: 06/15/24 08:40 Temperature 97.9 F Temperature Source Oral Pulse Rate [Left Brachial] 97 H Respiratory Rate 19 Blood Pressure [Left Arm] 158/74 H Blood Pressure Mean [Left Arm] 102 Blood Pressure Source [Left Arm] Automatic Cuff Blood Pressure Position [Left Arm] Sitting 02 Sat by Pulse Oximetry 98 Oxygen Delivery Method Room Air
[2024-06-15 09:33] VITALS: BP 158/74; PULSE 97; RESP 19; TEMP 36.6; O2SAT 98
== END 2024-06-15 09:40 | disposition home or self-care (01) ==
PROVIDERS: Emergency Provider Nurse Practitioner Family; PCP Internal Medicine
DX: M79.672 Pain in left foot (principal); H66.91 Otitis media, unspecified, right ear; H61.22 Impacted cerumen, left ear; R42 Dizziness and giddiness
CPT/HCPCS: 99212; 99214; G0463

== ENCOUNTER 2025-02-06 09:19 | Outpatient (CLI) | payer MEDICARE, MEDICAID, SELFPAY ==
--- NOTE | 2025-02-06 09:21 | XR_ITS ---
FINAL REPORT CLINICAL HISTORY: Fall 2 months ago, right posterior buttock pain COMPARISON: None FINDINGS: SINGLE VIEW PELVIS: A single view of the pelvis was obtained. There is no acute fracture or dislocation. Vizualized joint spaces are normally aligned. Soft tissues are unremarkable. IMPRESSION: No acute bony abnormality. Reviewed, Interpreted and Dictated by Roddy August MD Transcribed by Alejandra Bell Authenticated and [facility]
--- NOTE | 2025-02-06 09:21 | XR_ITS ---
FINAL REPORT TECHNIQUE: Lumbar spine 4 views CLINICAL HISTORY: Fall about 2 months ago, right lumbosacral back pa COMPARISON: None FINDINGS: LUMBAR SPINE: AP, oblique and lateral views of the lumbar spine were obtained. There is no prior exam for comparison. There is no acute fracture or malalignment. Vertebral body height is preserved. There are mild to moderate anterior osteophytes at the L1-2 level. Moderate facet sclerosis is noted in the lower lumbar spine. Disc space height is preserved. No acute paraspinal abnormality. IMPRESSION: Mild to moderate degenerative change as described above, without acute bony abnormality. Reviewed, Interpreted and Dictated by Roddy August MD Transcribed by Alejandra Bell Authenticated and [facility]
--- OUTSIDE RECORDS SUMMARY | 2025-02-06 09:21 | XMS_ITS | Continuity of Care Document ---
Author Name [facility] Organization [facility] Care Team Providers Care Admission Nurse Name Role Phone [facility] Unavailable Unavailable Problems Combined list of problems from Department of Defense and Veterans Affairs facilities. It does not include entries that were removed or entered in error. 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 It does not include entries that were removed or entered in error. Substance Category Reaction Severity Reaction type Status Date Reported Comments Source [place] Propensity to adverse reactions to drug (finding) SWELLING OF ARM active 2 [place] Immunizations Combined list of available immunizations from the Department of Defense and Veterans Affairs facilities. 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 Social History Type Response Date Comment Sourc e Tobacco smoking status NHIS TOBACCO CURRENT USER 12/21/2007 [facility] History of tobacco use TOBACCO CIGARETTE SMOKER 12/21/2007 [facility] History of tobacco use TOBACCO CURRENT USER 06/21/2007 [facility] History of tobacco use TOBACCO FORMER USER LESS 12 MONTHS 11/04/2002 NO SMOKING FOR A MONTH [facility]
== END 2025-02-06 23:59 | disposition home or self-care (01) ==
LOC: RAD 09:19
PROVIDERS: PCP Internal Medicine; Visit Provider Internal Medicine
DX: M54.50 Low back pain, unspecified (principal); M79.18 Myalgia, other site
CPT/HCPCS: 72100; 72170